=== PATIENT | female | born 1980 | race African-American/Black ===

== ENCOUNTER → 2016-11-30 | Outpatient (CLI) | payer OTHER ==
[~2016-11-30] MED LIST: CEREFOLIN TABL1 EACH PO; HYDROCHLOROTHIA25 MG PO; HYDROCODON-ACE1 EAC7 PO; NABUMETONE750 MG PO; NAPROXEN500 MG PO; PERCOCET 5/31 TABLET PO; PHENTERMINE H37.5 MG PO; PREVACID30 MG PO; ULTRAM50 MG PO; VITAMIN D31000 UNIT PO; WELLBUTRIN100 MG PO
== END | disposition home or self-care (01) ==
LOC: CDC 09:50
DX: Z01.810 Encounter for preprocedural cardiovascular examination (principal); M25.461 Effusion, right knee; S83.231A Complex tear of medial meniscus, current injury, right knee, initial encounter
CPT/HCPCS: 93000

== ENCOUNTER 2017-11-04 11:18 | Day surgery (SDC) | payer OTHER ==
[~2017-11-04] VITALS: Ht 167.6 cm; Wt 145.1 kg
[~2017-11-04 11:18] MED LIST changes: +LEXAPRO10 MG PO; +MOBIC15 MG PO; +MULTIVITAMIN1 EAC2 PO; +VITAMIN D35000 UNIT PO; +WELLBUTRIN SR150 MG PO; -WELLBUTRIN100 MG PO
[2017-11-04 11:58] VITALS: BP 111/58
[2017-11-04 12:26] LABS: HEMATOCRIT 36.5 % (36.0-46.0); HEMOGLOBIN 11.6 G/DL (11.9-15.5); MCV 87.1 FL (83-99)
[2017-11-04 17:56] VITALS: BP 135/74
[2017-11-04 18:42] VITALS: BP 129/66
== END 2017-11-04 18:55 | disposition home or self-care (01) ==
LOC: SDC 11:18
PROVIDERS: Anesthesiology; Podiatrist Foot & Ankle Surgery
PROC: 01NG0ZZ Release Tibial Nerve, Open Approach (ICD-10-PCS; principal; 2017-11-04)
DX: G57.51 Tarsal tunnel syndrome, right lower limb (principal); M76.821 Posterior tibial tendinitis, right leg; I10 Essential (primary) hypertension; E03.9 Hypothyroidism, unspecified; Z87.891 Personal history of nicotine dependence; Z98.84 Bariatric surgery status
CPT/HCPCS: 84703; 85014; 85018; J0330; J0690; J1100; J2250; J2405; J3010; S0020

== ENCOUNTER → 2018-04-19 | Emergency (ER) | payer OTHER ==
[~2018-04-19] VITALS: Ht 170.2 cm; Wt 148.0 kg
[~2018-04-19] MED LIST changes: +BENTYL10 MG PO; +NORCO 5/3251 TABLET PO; +ZANTAC300 MG PO
[2018-04-19 20:18] LABS: HEMATOCRIT 37.5 % (36.0-46.0); HEMOGLOBIN 12.2 G/DL (11.9-15.5); MCH 27.8 PG (29.0-34.0); MCHC 32.5 G/DL (30.0-36.0); MCV 85.4 FL (83-99); PLATELET COUNT 386 K/uL (156-360); RBC DIS.WIDTH-CV 14.2 % (11.8-14.6); RBC DIS.WIDTH-SD 44.3 % (39-53); RED BLOOD COUNT 4.39 M/uL (3.80-5.20); WHITE BLOOD COUNT 7.6 K/uL (4.1-10.2)
[2018-04-19 20:42] LABS: TROP-I INTERPRETATION NEGATIVE; TROPONIN-I < 0.01 ng/mL (0.0-0.30)
[2018-04-19 20:43] LABS: CHLORIDE 104 mEq/L (99-109); POTASSIUM 3.5 mEq/L (3.7-5.4); SODIUM 140 mEq/L (136-147)
[2018-04-19 20:45] LABS: GLUCOSE 85 mg/dL (70-99)
[2018-04-19 20:49] LABS: GFR ESTIMATE (CALCULATED) > 59 mL/min/; UREA NITROGEN (BUN) 16 mg/dL (9-23)
[2018-04-19 21:43] LABS: AMYLASE 44 IU/L (1-118)
[2018-04-19 21:52] LABS: LIPASE 8 U/L (1.0-51.0)
[2018-04-19 22:24] LABS: TOTAL PROTEIN 7.5 g/dL (6.4-8.3)
[2018-04-19 22:26] LABS: TOTAL BILIRUBIN 0.2 mg/dL (0.0-1.0)
[2018-04-19 22:27] LABS: ALKALINE PHOSPHATASE 114 IU/L (3-129)
[2018-04-19 22:29] LABS: AST (GOT) 16 IU/L (2-34)
[2018-04-19 22:30] LABS: ALT (GPT) 10 IU/L (3-49); DIRECT BILIRUBIN 0.1 mg/dL (0.0-0.3)
[2018-04-20] VITALS: BP 131/88
== END | disposition home or self-care (01) ==
LOC: RME 19:07 → EME 19:07
DX: R10.12 Left upper quadrant pain (principal); R94.31 Abnormal electrocardiogram [ECG] [EKG]; I10 Essential (primary) hypertension; K21.9 Gastro-esophageal reflux disease without esophagitis; F31.9 Bipolar disorder, unspecified; F32.9 Major depressive disorder, single episode, unspecified; Z87.891 Personal history of nicotine dependence; Z87.19 Personal history of other diseases of the digestive system; Z98.84 Bariatric surgery status; Z98.890 Other specified postprocedural states; Z91.018 Allergy to other foods
CPT/HCPCS: 71046; 74177; 80048; 80076; 82150; 83690; 84484; 85027; 85379; 93005; 99281; 99285; J1885; J7030